=== PATIENT | female | born 1950 ===

== ENCOUNTER 2022-12-17 05:00 | Day surgery (SDC) | payer OTHER ==
[~2022-12-17] VITALS: Ht 157.5 cm; Wt 61.2 kg
[~2022-12-17 05:00] MED LIST: NASAL MIST126 ML; PLAVIX75 MG PO; SYNTH PO
[2022-12-17] MEDS ORDERED: TYLENOL325 MG PO (08:16)
== END 2022-12-17 14:15 | disposition home or self-care (01) ==
LOC: CIR.AMB 05:00 → EDBD 10:00 → CIR.AMB 10:00
PROVIDERS: ATTEND Obstetrics & Gynecology Gynecology
DX: N85.8 Other specified noninflammatory disorders of uterus (principal); Z20.822 Contact with and (suspected) exposure to COVID-19; Z88.6 Allergy status to analgesic agent; Z91.041 Radiographic dye allergy status; E78.5 Hyperlipidemia, unspecified; I10 Essential (primary) hypertension